=== PATIENT | female | born 1955 | race Caucasian/White ===

== ENCOUNTER 2018-04-01 11:21 | Observation (INO) | payer BC ==
[2018-04-01] MEDS ORDERED: Sodium Chloride 0.9% 10 ML Syringe FLUSH PRN ×2 (11:25→13:32)
[2018-04-01] MEDS ORDERED: Sodium Chloride 0.9% 2.5 ML Syringe FLUSH PRN ×2 (11:25→13:32)
[2018-04-01] MEDS ORDERED: Diltiazem 25 MG/5 ML SDV IVPUSH ONE (11:34)
[2018-04-01] MEDS ORDERED: Aspirin 81 MG Tab.Chew PO ONE (11:34)
--- NOTE | 2018-04-01 11:34 | EDM.PDOC ---
ED HPI GENERAL MEDICAL PROBLEM - General Chief Complaint: Cardiovascular Problem Stated Complaint: HEART ISSUES Time Seen by Provider: 04/01/18 11:25 Source of Information: Reports: Patient History Limitations: Reports: No Limitations - History of Present Illness INITIAL COMMENTS - FREE TEXT/NARRATIVE: History of present illness: []Patient awoke with a strong heartbeat followed by a fluttering in her chest, a slowing of her heart beat and generalized weakness. She denies any syncope. 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 Review of systems: As per history of present illness and below otherwise all systems reviewed and negative. Past medical history: As per history of present illness and as reviewed below otherwise noncontributory. Surgical history: As per history of present illness and as reviewed below otherwise noncontributory. Social history: No reported history of drug or alcohol abuse. Family history: As per history of present illness and as reviewed below otherwise noncontributory. Physical exam: General: Well developed, well nourished in NAD HEENT: Atraumatic, normocephalic, pupils reactive, negative for conjunctival pallor or scleral icterus, mucous membranes moist, throat clear, neck supple, nontender, trachea midline. Lungs: Clear to auscultation, breath sounds equal bilaterally, chest nontender. Heart: S1S2, regular, negative for clicks, rubs, or JVD. Abdomen: Soft, nondistended, nontender. Negative for masses or hepatosplenomegaly. Negative for costovertebral tenderness. Pelvis: Stable nontender. Genitourinary: Deferred. Rectal: Deferred. Extremities: Atraumatic, negative for cords or calf pain. Neurovascular unremarkable. Neuro: Awake, alert, oriented. Cranial nerves II through XII unremarkable. Cerebellum unremarkable. Motor and sensory unremarkable throughout. Exam nonfocal. Skin:warm and dry Diagnostics: CBC, chemistry, troponin, chest x-ray, EKG Therapeutics: Diltiazem with decreased rate patient remains in A. fib ED Course: She had a brief episode of asymptomatic hypotension after first dose of diltiazem Impression: A. fib with rapid ventricular rate him a mild hyperkalemia Prescriptions: Plan: Admit to hospitalist for observation Definitive disposition and diagnosis as appropriate pending reevaluation and review of above. Back Pain Score (Numeric/FACES): 4 - Related Data Allergies Allergy/AdvReac Type Severity Reaction Status Date / Time Penicillins Allergy Rash Verified 02/15/18 12:31 Sulfa (Sulfonamide Allergy Rash Verified 02/15/18 12:31 Antibiotics) sulfamethoxazole Allergy Rash Verified 02/15/18 12:31 [From Bactrim] trimethoprim [From Bactrim] Allergy Rash Verified 02/15/18 12:31 Home Meds: Home Meds Albuterol [Proventil HFA] 2 puff INH DAILY 02/15/18 [History] Gabapentin [Neurontin] 900 mg PO BEDTIME 02/15/18 [History] LORazepam 1 mg PO BEDTIME PRN 02/15/18 [History] Lidocaine 1 patch TOP Q12HR PRN 02/15/18 [History] Meloxicam [Mobic] 15 mg PO DAILY 02/15/18 [History] Metoprolol Succinate [Toprol XL 50mg] 1 tab PO DAILY 02/15/18 [History] Metoprolol Succinate [Toprol Xl] 1 tab PO DAILY 02/15/18 [History] oxyCODONE ER [OxyCONTIN] 10 mg PO QID 02/15/18 [History] Past Medical History HEENT History: Reports: None Cardiovascular History: Reports: Other (See Below) Other Cardiovascular History: Has hx of tachycardia and palpitations. Respiratory History: Reports: None Gastrointestinal History: Reports: None Genitourinary History: Reports: None Musculoskeletal History: Reports: Arthritis, Fibromyalgia Neurological History: Reports: None Psychiatric History: Reports: None Endocrine/Metabolic History: Reports: None Hematologic History: Reports: None Dermatologic History: Reports: None - Infectious Disease History Infectious Disease History: Reports: None Social & Family History - Family History Family Medical History: Noncontributory - Caffeine Use Caffeine Use: Reports: Coffee ED ROS GENERAL - Review of Systems Review Of Systems: ROS reveals no pertinent complaints other than HPI. ED EXAM, GENERAL - Physical Exam Exam: See Below (See history of present illness) Course - Vital Signs Last Recorded V/S: Last Vital Signs Temp 98.6 F 04/01/18 11:37 Pulse 84 04/01/18 12:39 Resp 16 04/01/18 12:39 BP 91/63 04/01/18 12:39 Pulse Ox 96 04/01/18 12:39 - Orders/Labs/Meds Orders: Active Orders 24 hr Category Date Time Status Patient Status [ADT] Stat ADT 04/01/18 12:58 Ordered EKG Documentation Completion [RC] STAT Care 04/01/18 11:25 Active EKG Documentation Completion [RC] STAT Care 04/01/18 12:13 Active Sodium Chloride 0.9% [Saline Flush] Med 04/01/18 11:25 Active 10 ml FLUSH ASDIRECTED PRN Sodium Chloride 0.9% [Saline Flush] Med 04/01/18 11:25 Active 2.5 ml FLUSH ASDIRECTED PRN Saline Lock Insert [OM.PC] Stat Oth 04/01/18 11:25 Ordered Medication Orders Sodium Chloride (Saline Flush) 10 ml FLUSH ASDIRECTED PRN PRN Reason: Keep Vein Open Last Admin: 04/01/18 11:59 Dose: 10 ml Sodium Chloride (Saline Flush) 2.5 ml FLUSH ASDIRECTED PRN PRN Reason: Keep Vein Open Last Admin: 04/01/18 11:59 Dose: 2.5 ml Labs: Laboratory Tests 04/01/18 04/01/18 Range/Units 11:38 12:08 WBC 8.71 (4.0-11.0) K/uL RBC 6.03 H (4.30-5.90) M/uL Hgb 18.3 H (12.0-16.0) g/dL Hct 53.0 H (36.0-46.0) % MCV 87.9 (80.0-98.0) fL MCH 30.3 (27.0-32.0) pg MCHC 34.5 (31.0-37.0) g/dL RDW Std Deviation 43.3 (28.0-62.0) fl RDW Coeff of James 13 (11.0-15.0) % Plt Count 197 (150-400) K/uL MPV 11.20 (7.40-12.00) fL Neut % (Auto) 58.5 (48.0-80.0) % Lymph % (Auto) 34.2 (16.0-40.0) % [place] % (Auto) 6.9 (0.0-15.0) % Eos % (Auto) 0.2 (0.0-7.0) % Baso % (Auto) 0.2 (0.0-1.5) % Neut # (Auto) 5.1 (1.4-5.7) K/uL Lymph # (Auto) 3.0 H (0.6-2.4) K/uL [place] # (Auto) 0.6 (0.0-0.8) K/uL Eos # (Auto) 0.0 (0.0-0.7) K/uL Baso # (Auto) 0.0 (0.0-0.1) K/uL Nucleated RBC % 0.0 /100WBC Nucleated RBCs # 0 K/uL Sodium 144 (136-145) mmol/L Potassium 5.3 H (3.5-5.1) mmol/L Chloride 109 H (98-107) mmol/L Carbon Dioxide 28.1 (21.0-32.0) mmol/L BUN 23 H (7.0-18.0) mg/dL Creatinine 1.2 H (0.6-1.0) mg/dL Est Cr Clr Drug Dosing 43.74 mL/min Estimated GFR (MDRD) 45.5 ml/min Glucose 111 H (74-106) mg/dL Calcium 9.5 (8.5-10.1) mg/dL Total Bilirubin 0.8 (0.2-1.0) mg/dL AST 32 (15-37) IU/L ALT 55 (14-63) IU/L Alkaline Phosphatase 66 (46-116) U/L Troponin I < 0.050 (0.000-0.056) ng/mL Total Protein 8.0 (6.4-8.2) g/dL Albumin 3.9 (3.4-5.0) g/dL Globulin 4.1 H (2.0-3.5) g/dL Albumin/Globulin Ratio 1.0 L (1.3-2.8) Meds: Medications Generic Name Dose Route Start Last Admin Trade Name Freq PRN Reason Stop Dose Admin Sodium Chloride 10 ml 04/01/18 11:25 04/01/18 11:59 Saline Flush FLUSH 10 ml ASDIRECTED PRN Administration Keep Vein Open Sodium Chloride 2.5 ml 04/01/18 11:25 04/01/18 11:59 Saline Flush FLUSH 2.5 ml ASDIRECTED PRN Administration Keep Vein Open Discontinued Medications Generic Name Dose Route Start Last Admin Trade Name Freq PRN Reason Stop Dose Admin Aspirin 324 mg 04/01/18 11:34 04/01/18 11:58 Aspirin PO 04/01/18 11:35 324 mg ONETIME ONE Administration Diltiazem HCl 20 mg 04/01/18 11:34 04/01/18 11:58 Diltiazem IVPUSH 04/01/18 11:35 20 mg ONETIME ONE Administration Sodium Chloride 500 mls @ 999 mls/hr 04/01/18 12:04 04/01/18 12:17 Normal Saline IV 04/01/18 12:34 999 mls/hr .Bolus ONE Administration Departure - Departure Time of Disposition: 13:03 Disposition: Refer to Observation Condition: Good Clinical Impression: Atrial fibrillation with rapid ventricular response Referrals: PCP,None [Primary Care Provider] - Forms: ED Department Discharge - My Orders Last 24 Hours: My Active Orders 04/01/18 11:25 EKG Documentation Completion [RC] STAT Sodium Chloride 0.9% [Saline Flush] 10 ml FLUSH ASDIRECTED PRN Sodium Chloride 0.9% [Saline Flush] 2.5 ml FLUSH ASDIRECTED PRN Saline Lock Insert [OM.PC] Stat 04/01/18 12:13 EKG Documentation Completion [RC] STAT 04/01/18 12:58 Patient Status [ADT] Stat - Assessment/Plan Last 24 Hours: My Active Orders 04/01/18 11:25 EKG Documentation Completion [RC] STAT Sodium Chloride 0.9% [Saline Flush] 10 ml FLUSH ASDIRECTED PRN Sodium Chloride 0.9% [Saline Flush] 2.5 ml FLUSH ASDIRECTED PRN Saline Lock Insert [OM.PC] Stat 04/01/18 12:13 EKG Documentation Completion [RC] STAT 04/01/18 12:58 Patient Status [ADT] Stat
[2018-04-01] MEDS ORDERED: Sodium Chloride 0.9% 500 ML IV ONE (12:04)
--- NOTE | 2018-04-01 12:25 | CR ---
EXAMINATION: Portable chest radiograph. HISTORY: Shortness of breath. FINDINGS: The trachea is midline. The cardiomediastinal silhouette is within normal limits. No pulmonary infilt rates, effusions or pneumothorax. Osseous structures appear unremarkable. IMPRESSION: No acute cardiopulmonary process.
[2018-04-01 12:41] LABS: CHLORIDE,CL 109 mmol/L (98-107); SODIUM,NA 144 mmol/L (136-145)
[2018-04-01] MEDS ORDERED: Ondansetron 4 MG/2 ML SDV IVPUSH PRN (13:22)
[2018-04-01] MEDS ORDERED: Enoxaparin 40 MG/0.4 ML Syringe SUBCUT SCH (13:30)
--- NOTE | 2018-04-01 13:40 | PCM.HP ---
H&P History of Present Illness - General Date of Service: 04/01/18 Admit Problem/Dx: Admission Diagnosis/Problem Admission Diagnosis/Problem Chest pain Source of Information: Patient - History of Present Illness Initial Comments - Free Text/Narative: This is a 62-year-old female with a chronic medical history of tachycardia for which she takes metoprolol XL who is presenting today for heart palpitations and not feeling well. Patient came into the ED and assessment was determined to have new onset atrial fibrillation with RVR. Patient says that she has never had atrial fibrillation in the past the metoprolol XL is been prescribed to her for over 15 years for her tachycardia related issues. She has never had any myocardial infarction or other coronary disease issues that she is aware of. Back Pain Score (Numeric/FACES): 4 - Related Data Allergies/Adverse Reactions: Allergies Allergy/AdvReac Type Severity Reaction Status Date / Time Penicillins Allergy Rash Verified 02/15/18 12:31 Sulfa (Sulfonamide Allergy Rash Verified 02/15/18 12:31 Antibiotics) sulfamethoxazole Allergy Rash Verified 02/15/18 12:31 [From Bactrim] trimethoprim [From Bactrim] Allergy Rash Verified 02/15/18 12:31 Home Medications: Home Meds Albuterol [Proventil HFA] 2 puff INH BID PRN 02/15/18 [History] Gabapentin [Neurontin] 900 mg PO BEDTIME 02/15/18 [History] LORazepam 1 mg PO BEDTIME PRN 02/15/18 [History] Lidocaine 1 patch TOP Q12HR PRN 02/15/18 [History] Meloxicam [Mobic] 15 mg PO DAILY 02/15/18 [History] Metoprolol Succinate [Toprol XL 50mg] 1 tab PO ACBREAKFAST 02/15/18 [History] Metoprolol Succinate [Toprol Xl] 1 tab PO BEDTIME 02/15/18 [History] oxyCODONE ER [OxyCONTIN] 10 mg PO QID PRN 02/15/18 [History] Ketoconazole 120 ml TP ASDIRECTED 04/01/18 [History] Pimecrolimus [Elidel] 30 gm TP BID PRN 04/01/18 [History] Past Medical History HEENT History: Reports: None Cardiovascular History: Reports: Other (See Below) Other Cardiovascular History: Has hx of tachycardia and palpitations. 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) Other OB/BYN History: Partial Hysterectomy for Uterine Cancer Musculoskeletal History: Reports: Arthritis, Fibromyalgia Neurological History: Reports: None Psychiatric History: Reports: None Endocrine/Metabolic History: Reports: None Other Endocrine/Metabolic History: Legionairs Disease 2012 Hematologic History: Reports: None Oncologic (Cancer) History: Reports: Uterine Dermatologic History: Reports: None - Infectious Disease History Infectious Disease History: Reports: None Social & Family History - Family History Family Medical History: Noncontributory - Tobacco Use Smoking Status *Q: Former Smoker Years of Tobacco use: 40 Packs/Tins Daily: 1 Used Tobacco, but Quit: Yes Month/Year Tobacco Last Used: 07/2012 Second Hand Smoke Exposure: No - Caffeine Use Caffeine Use: Reports: Coffee - Recreational Drug Use Recreational Drug Use: No H&P Review of Systems - Review of Systems: Review Of Systems: ROS reveals no pertinent complaints other than HPI. Exam - Exam Exam: See Below - Vital Signs Vital Signs: Last Vital Signs Temp 37.0 C 04/01/18 11:37 Pulse 84 04/01/18 12:39 Resp 16 04/01/18 12:39 BP 91/63 04/01/18 12:39 Pulse Ox 96 04/01/18 12:39 Weight: 81.647 kg - Exam Quality Assessment: Supplemental Oxygen General: Alert, Oriented, Cooperative Lungs: Clear to Auscultation, Normal Respiratory Effort Cardiovascular: Irregular Rhythm, Tachycardia GI/Abdominal Exam: Normal Bowel Sounds Extremities: Normal Inspection, Normal Range of Motion - Patient Data Lab Results Last 24 hrs: Laboratory Results - last 24 hr 04/01/18 04/01/18 Range/Units 11:38 12:08 WBC 8.71 (4.0-11.0) K/uL RBC 6.03 H (4.30-5.90) M/uL Hgb 18.3 H (12.0-16.0) g/dL Hct 53.0 H (36.0-46.0) % MCV 87.9 (80.0-98.0) fL MCH 30.3 (27.0-32.0) pg MCHC 34.5 (31.0-37.0) g/dL RDW Std Deviation 43.3 (28.0-62.0) fl RDW Coeff of James 13 (11.0-15.0) % Plt Count 197 (150-400) K/uL MPV 11.20 (7.40-12.00) fL Neut % (Auto) 58.5 (48.0-80.0) % Lymph % (Auto) 34.2 (16.0-40.0) % [place] % (Auto) 6.9 (0.0-15.0) % Eos % (Auto) 0.2 (0.0-7.0) % Baso % (Auto) 0.2 (0.0-1.5) % Neut # (Auto) 5.1 (1.4-5.7) K/uL Lymph # (Auto) 3.0 H (0.6-2.4) K/uL [place] # (Auto) 0.6 (0.0-0.8) K/uL Eos # (Auto) 0.0 (0.0-0.7) K/uL Baso # (Auto) 0.0 (0.0-0.1) K/uL Nucleated RBC % 0.0 /100WBC Nucleated RBCs # 0 K/uL Sodium 144 (136-145) mmol/L Potassium 5.3 H (3.5-5.1) mmol/L Chloride 109 H (98-107) mmol/L Carbon Dioxide 28.1 (21.0-32.0) mmol/L BUN 23 H (7.0-18.0) mg/dL Creatinine 1.2 H (0.6-1.0) mg/dL Est Cr Clr Drug Dosing 43.74 mL/min Estimated GFR (MDRD) 45.5 ml/min Glucose 111 H (74-106) mg/dL Calcium 9.5 (8.5-10.1) mg/dL Total Bilirubin 0.8 (0.2-1.0) mg/dL AST 32 (15-37) IU/L ALT 55 (14-63) IU/L Alkaline Phosphatase 66 (46-116) U/L Troponin I < 0.050 (0.000-0.056) ng/mL Total Protein 8.0 (6.4-8.2) g/dL Albumin 3.9 (3.4-5.0) g/dL Globulin 4.1 H (2.0-3.5) g/dL Albumin/Globulin Ratio 1.0 L (1.3-2.8) Result Diagrams: 04/01/18 11:38 04/01/18 12:08 - Problem List (1) Atrial fibrillation with rapid ventricular response SNOMED Code(s): 387261209052967 ICD Code: I48.91 - UNSPECIFIED ATRIAL FIBRILLATION Status: Acute Current Visit: Yes Problem List Initiated/Reviewed/Updated: Yes Orders Last 24hrs: Active Orders 24 hr Category Date Time Status Patient Status [ADT] Stat ADT 04/01/18 12:58 Active EKG Documentation Completion [RC] STAT Care 04/01/18 11:25 Active EKG Documentation Completion [RC] STAT Care 04/01/18 12:13 Active Height and Weight [RC] UPON Care 04/01/18 13:22 Ordered Intake and Output [RC] QSHIFT Care 04/01/18 13:25 Ordered Oxygen Therapy [RC] PRN Care 04/01/18 13:22 Ordered Up With Assistance [RC] ASDIRECTED Care 04/01/18 13:22 Ordered VTE/DVT Education [RC] PER UNIT ROUTINE Care 04/01/18 13:22 Ordered Vital Signs [RC] Q4H Care 04/01/18 13:22 Ordered Heart Healthy Diet [DIET] Diet 04/01/18 Breakfast Ordered CBC WITH AUTO DIFF [HEME] AM Lab 04/02/18 05:11 Ordered COMPREHENSIVE METABOLIC PN,CMP [CHEM] AM Lab 04/02/18 05:11 Ordered LACTATE WITH REFLEX [BG] Stat Lab 04/01/18 13:10 Ordered TROPONIN I [CHEM] Q6H Lab 04/01/18 18:00 Ordered TROPONIN I [CHEM] Q6H Lab 04/02/18 00:00 Ordered Acetaminophen [Tylenol] Med 04/01/18 13:22 Ordered 650 mg PO Q4H PRN Enoxaparin [Lovenox] Med 04/01/18 13:30 Ordered 40 mg SUBCUT Q24H Metoprolol Tartrate [Lopressor] Med 04/01/18 13:45 Ordered 50 mg PO Q12H Ondansetron [Zofran] Med 04/01/18 13:22 Ordered 4 mg IVPUSH Q4H PRN Sodium Chloride 0.9% @ 125 MLS/HR (1000ml) Med 04/01/18 13:30 Ordered Sodium Chloride 0.9% [Normal Saline] 1,000 ml IV ASDIRECTED Sodium Chloride 0.9% [Saline Flush] Med 04/01/18 11:25 Active 10 ml FLUSH ASDIRECTED PRN Sodium Chloride 0.9% [Saline Flush] Med 04/01/18 13:32 Ordered 10 ml FLUSH ASDIRECTED PRN Sodium Chloride 0.9% [Saline Flush] Med 04/01/18 11:25 Active 2.5 ml FLUSH ASDIRECTED PRN Sodium Chloride 0.9% [Saline Flush] Med 04/01/18 13:32 Ordered 2.5 ml FLUSH ASDIRECTED PRN oxyCODONE Med 04/01/18 13:22 Ordered 10 mg PO Q6H PRN Peripheral IV Insertion Adult [OM.PC] Routine Ot 04/01/18 13:22 Ordered Saline Lock Insert [OM.PC] Routine Oth 04/01/18 13:22 Ordered Saline Lock Insert [OM.PC] Stat Ot 04/01/18 11:25 Ordered Sequential Compression Device [OM.PC] Per Unit Routine Ot 04/01/18 13:25 Ordered Resuscitation Status Routine Resus Stat 04/01/18 13:22 Ordered Medication Orders Acetaminophen (Tylenol) 650 mg PO Q4H PRN PRN Reason: Pain (Mild 1-3)/fever Enoxaparin Sodium (Lovenox) 40 mg SUBCUT Q24H ANNA Sodium Chloride (Normal Saline) 1,000 mls @ 125 mls/hr IV ASDIRECTED ANNA Metoprolol Tartrate (Lopressor) 50 mg PO Q12H ANNA Ondansetron HCl (Zofran) 4 mg IVPUSH Q4H PRN PRN Reason: Nausea/Vomiting Oxycodone HCl (Oxycodone) 10 mg PO Q6H PRN PRN Reason: Pain (moderate 4-6) Sodium Chloride (Saline Flush) 10 ml FLUSH ASDIRECTED PRN PRN Reason: Keep Vein Open Last Admin: 04/01/18 11:59 Dose: 10 ml Sodium Chloride (Saline Flush) 2.5 ml FLUSH ASDIRECTED PRN PRN Reason: Keep Vein Open Last Admin: 04/01/18 11:59 Dose: 2.5 ml Sodium Chloride (Saline Flush) 10 ml FLUSH ASDIRECTED PRN PRN Reason: Keep Vein Open Sodium Chloride (Saline Flush) 2.5 ml FLUSH ASDIRECTED PRN PRN Reason: Keep Vein Open Assessment/Plan Comment:: She is 2-year-old female presenting with new onset atrial fibrillation with RVR and chest discomfort. Patient admitted under observation for ACS rule out. Plan is to get troponins 3, place the patient on telemetry for evaluation, controlled the rate as needed. Shall reassess in the a.m.
[2018-04-01] MEDS ORDERED: Metoprolol Tartrate 50 MG Tab PO SCH (13:45)
[2018-04-01] MEDS ORDERED: Diphtheria,Pertussis(Acell),Tetanus Vaccine 0.5 ML Syringe IM ONE (14:27)
[2018-04-01] MEDS: Sodium Chloride 0.9% 1,000 ML IV SCH (15:11)
[2018-04-01] MEDS: oxyCODONE 5 MG Tab PO PRN ×2 (15:13→20:42)
[2018-04-01] MEDS: Acetaminophen 325 MG Tab PO PRN (20:43)
[2018-04-01] MEDS ORDERED: Metoprolol Succinate 100 MG Tab.ER PO SCH (21:00)
[2018-04-01] MEDS ORDERED: Gabapentin 300 MG Cap PO SCH (21:00)
[2018-04-02] MEDS: Sodium Chloride 0.9% 1,000 ML IV SCH (01:48)
[2018-04-02] MEDS: Acetaminophen 325 MG Tab PO PRN (01:59)
[2018-04-02] MEDS: oxyCODONE 5 MG Tab PO PRN (03:04)
== END 2018-04-02 09:07 | disposition home or self-care (01) ==
LOC: MW.ED 11:21 → MW.MS 13:37
PROVIDERS: ADMIT Internal Medicine; ATTEND Internal Medicine
DX: I48.0 Paroxysmal atrial fibrillation (principal); R07.9 Chest pain, unspecified; Z87.891 Personal history of nicotine dependence; Z79.899 Other long term (current) drug therapy; Z88.0 Allergy status to penicillin; Z88.2 Allergy status to sulfonamides; Z88.1 Allergy status to other antibiotic agents
CPT/HCPCS: 36415; 71045; 80053; 83605; 83735; 84484; 85025; 90686; 90715; 93005; 96361; 96372; 96374; 99285; A9270; G0378; J1650; J3490; J7040